=== PATIENT | male | born 1940 | race Caucasian/White ===

== ENCOUNTER 2016-09-13 13:26 | Emergency (ER) | payer OTHER ==
[~2016-09-13] VITALS: Ht 167.6 cm; Wt 77.1 kg
[~2016-09-13 13:26] MED LIST: ADVAIR HFA120 INHALA IH; ALLOPURINOL300 MG PO; ALTACE5 MG PO; BENADRYL25 MG PO; BUMETANIDE1 MG PO; CEPHALEXIN500 MG PO; COMBIGAN O20 DROP/5 BOTH EYES; Combigan Ophth Soln BOTH EYES; Coumadin,Jantoven PO; DIGOXIN250 MCG PO; Dyazide, Maxzide 37. PO; EDECRIN25 MG PO; FINASTERIDE5 MG PO; Flomax PO; LUMIGAN 0.50 DROP/22 BOTH EYES; Lanoxin,Digitek PO; Lumigan 0.01% Ophth BOTH EYES; METOPROLOL SUC200 MG PO; Macrobid PO; Proscar PO; RAMIPRIL5 MG PO; SPIRIVA1 INHALATI IH; TAMSULOSIN HCL0.4 MG PO; TOPROL XL200 MG PO; ULORIC80 MG PO; WARFARIN SODIUM3 MG PO; WARFARIN SODIUM4 MG PO; Zyloprim PO
[2016-09-13 15:03] LABS: ADD MIUA? YES; BILIRUBIN NEGATIVE; BLOOD MODERATE; GLUCOSE (STRIP) NEGATIVE; KETONES NEGATIVE; LEUKOCYTES TRACE; NITRITE NEGATIVE; PROTEIN (STRIP) 100; SPECIFIC GRAVITY 1.016 (1.000-1.030); UROBILINOGEN 0.2 MG/DL (0.2-1.0)
[2016-09-13] MEDS ORDERED: SIMBRINZA 1%-0.28 ML BOTH EYES (15:08)
[2016-09-13] MEDS ORDERED: DIGITEK125 MC2 PO (15:10)
[2016-09-13] MEDS ORDERED: ALDACTONE25 MG PO (15:10)
[2016-09-13] MEDS ORDERED: COUMADIN4 MG PO (15:11)
[2016-09-13] MEDS ORDERED: HYDROXYZINE HCL25 MG PO (15:13)
[2016-09-13 15:15] LABS: COLOR RED ((YELLOW))
[2016-09-13 15:16] LABS: BASOPHIL COUNT 0.1 K/uL (0-0.1); EOSINOPHIL (%) 2.7 % (0-5); EOSINOPHIL COUNT 0.2 K/uL (0-0.3); HEMATOCRIT 42.9 % (38.0-50.0); IMMATURE GRANULOCYTE (%) 0.6 % (0.0-0.7); IMMATURE GRANULOCYTE COUNT 0.1 K/uL; INSTRUMENT ABS NEUTROPHIL CT 6.3 K/uL; LYMPHOCYTE COUNT 1.3 K/uL (1.0-2.8); MCH 32.1 PG (29.0-34.0); MCHC 32.6 G/DL (30.0-36.0); MCV 98.4 FL (86-99); MONOCYTE (%) 6.8 % (3-12); MONOCYTE COUNT 0.6 K/uL (0-0.8); NEUTROPHIL (%) 74.2 % (45-76); NEUTROPHIL COUNT 6.3 K/uL (1.8-6.4); PLATELET COUNT 230 K/uL (156-360); RBC DIS.WIDTH-CV 13.3 % (11.8-14.6); RBC DIS.WIDTH-SD 48.7 % (39-53); RED BLOOD COUNT 4.36 M/uL (4.00-5.50); WHITE BLOOD COUNT 8.5 K/uL (4.1-10.2)
[2016-09-13 15:18] LABS: RED BLOOD CELLS TNTC /HPF (0-5)
[2016-09-13 15:19] LABS: BACTERIA 1+ /HPF; CASTS PRESENT /LPF; CRYSTALS NONE SEEN; EPITHELIAL CELLS NONE SEEN /HPF; FINE GRANULAR CASTS RARE /LPF; MUCUS NONE SEEN /LPF
[2016-09-13 15:20] LABS: UCUL ADDED? NO
[2016-09-13 15:27] LABS: INTER. NORMALIZED RATIO 2.2; PROTHROMBIN TIME 22.5 (9.2-11.2)
[2016-09-13 15:32] LABS: CHLORIDE 109 mEq/L (99-109); POTASSIUM 4.6 mEq/L (3.7-5.4); SODIUM 141 mEq/L (136-147)
[2016-09-13 15:34] LABS: GLUCOSE 115 mg/dL (70-99)
[2016-09-13 15:35] LABS: ANION GAP 9 MEQ/L (2-14)
[2016-09-13 15:36] LABS: TOTAL BILIRUBIN 0.8 mg/dL (0.0-1.0)
[2016-09-13 15:40] LABS: ALKALINE PHOSPHATASE 66 IU/L (3-129); DIRECT BILIRUBIN 0.4 mg/dL (0.0-0.3); GFR ESTIMATE (CALCULATED) > 59 mL/min/; UREA NITROGEN (BUN) 36 mg/dL (9-23)
[2016-09-13 16:13] VITALS: BP 122/63
== END 2016-09-13 16:13 | disposition home or self-care (01) ==
LOC: EME 13:26
PROVIDERS: Physician Assistant
DX: R31.9 Hematuria, unspecified (principal); E78.5 Hyperlipidemia, unspecified; I10 Essential (primary) hypertension; Z79.01 Long term (current) use of anticoagulants; Z87.442 Personal history of urinary calculi; Z91.041 Radiographic dye allergy status; Z88.8 Allergy status to other drugs, medicaments and biological substances; Z87.891 Personal history of nicotine dependence
CPT/HCPCS: 80048; 80076; 81003; 85025; 85610; 87077; 87086; 87186; 99281; 99284

== ENCOUNTER 2016-12-27 07:00 | Day surgery (SDC) | payer OTHER ==
[~2016-12-27] VITALS: Ht 162.6 cm; Wt 77.1 kg
[~2016-12-27 07:00] MED LIST changes: +ALDACTONE25 MG PO; +COUMADIN4 MG PO; +DIGITEK125 MC2 PO; +HYDROXYZINE HCL25 MG PO; +SIMBRINZA 1%-0.28 ML BOTH EYES
[2016-12-27 08:38] LABS: INTER. NORMALIZED RATIO 1.3; PROTHROMBIN TIME 14.6 SEC (10.2-12.9)
[2016-12-27 11:26] VITALS: BP 121/73
[2016-12-27 12:23] VITALS: BP 107/72
== END 2016-12-27 12:33 | disposition home or self-care (01) ==
LOC: SDC 07:00
PROVIDERS: Urology
DX: N30.21 Other chronic cystitis with hematuria (principal); N41.1 Chronic prostatitis; N32.3 Diverticulum of bladder; I10 Essential (primary) hypertension; I48.91 Unspecified atrial fibrillation; J44.9 Chronic obstructive pulmonary disease, unspecified; E78.1 Pure hyperglyceridemia; E66.9 Obesity, unspecified; Z68.29 Body mass index [BMI] 29.0-29.9, adult; Z87.442 Personal history of urinary calculi; Z79.01 Long term (current) use of anticoagulants; Z87.891 Personal history of nicotine dependence
CPT/HCPCS: 74420; 85610; 88305; C1758; C1769; J1100; J2405; J3010